=== PATIENT | male | born 1990 | race Caucasian/White ===

== ENCOUNTER 2017-07-19 17:09 | Emergency (ER) | payer SELFPAY ==
[2017-07-19 17:13] VITALS: TEMP 97.6; O2SAT 98
--- NOTE | 2017-07-19 17:49 | ED PDOC ---
HPI: Psych/Substance Abuse Time Seen by Provider: 07/19/17 17:33 Chief Complaint (Nursing): Substance Abuse Chief Complaint (Provider): alcohol use History Per: Patient History/Exam Limitations: no limitations Onset/Duration Of Symptoms: Mins Suicide/Self Injury Attempted (Context): None Modifying Factor(s): Alcohol Associated Symptoms: denies: Suicidal Thoughts, Suicidal Plan Additional Complaint(s): 27yo male, brought to ER by EMS for evaluation as patient was noted to have jumped [place] the [place]. Patient reports he "went for a swim" because his friends bet him $200 to make the jump. He denies any head injury, abdominal pain , nausea or vomiting. He also denies any suicidal ideation or plan. Of note, patient admits to drinking alcohol today but denies any drug usage. No other complaints. Past Medical History Reviewed: Historical Data, Nursing Documentation, Vital Signs Vital Signs: Last Vital Signs Temp 97.6 F 07/19/17 17:10 Pulse 98 H 07/19/17 17:10 Resp 22 07/19/17 17:10 BP 159/96 H 07/19/17 17:10 Pulse Ox 98 07/19/17 17:10 - Medical History PMH: No Chronic Diseases - Surgical History Surgical History: No Surg Hx - Family History Family History: States: No Known Family Hx - Allergies Allergies/Adverse Reactions: Allergies Allergy/AdvReac Type Severity Reaction Status Date / Time No Known Allergies Allergy Verified 07/19/17 17:13 Review of Systems ROS Statement: Except As Marked, All Systems Reviewed And Found Negative Constitutional: Negative for: Fever, Chills Cardiovascular: Negative for: Chest Pain Respiratory: Negative for: Shortness of Breath Gastrointestinal: Negative for: Abdominal Pain Neurological: Negative for: Weakness, Numbness Physical Exam - Reviewed Nursing Documentation Reviewed: Yes Vital Signs Reviewed: Yes - Physical Exam Appears: Positive for: Non-toxic, No Acute Distress Head Exam: Positive for: ATRAUMATIC, NORMAL INSPECTION, NORMOCEPHALIC Skin: Positive for: Normal Color Eye Exam: Positive for: Normal appearance ENT: Positive for: Normal ENT Inspection. Negative for: Pharyngeal Erythema, Tonsillar Exudate, Tonsillar Swelling Neck: Positive for: Normal, Supple Cardiovascular/Chest: Positive for: Regular Rate, Rhythm Respiratory: Positive for: Normal Breath Sounds. Negative for: Wheezing, Respiratory Distress Pulses-Dorsalis Pedis (L): 2+ Pulses-Dorsalis Pedis (R): 2+ Gastrointestinal/Abdominal: Positive for: Normal Exam, Soft. Negative for: Tenderness Back: Positive for: Normal Inspection Extremity: Positive for: Normal ROM. Negative for: Pedal Edema, Deformity Neurologic/Psych: Positive for: Alert, Oriented. Negative for: Motor/Sensory Deficits - Laboratory Results Result Diagrams: 07/19/17 17:50 Interpretation Of Abn Labs: 121 etoh - ECG O2 Sat by Pulse Oximetry: 98 (RA) Pulse Ox Interpretation: Normal - Progress ED Course And Treament: 1848: Stable. AAOx3. Pain free. Crisis saw pt. Does not meet criteria for admit. Fu with pcp. Medical Decision Making Medical Decision Making: Impression: Alcohol intoxication Plan: -- Labs -- Crisis evaluation -- 1:1 Evaluation Scribe Attestation: Documented by Armida Gonzalez acting as a scribe for Allen Stout MD. Provider Attestation: All medical record entries made by the Scribe were at my direction and personally dictated by me. I have reviewed the chart and agree that the record accurately reflects my personal performance of the history, physical exam, medical decision making, and the department course for this patient. I have also personally directed, reviewed, and agree with the discharge instructions and disposition. Disposition - Clinical Impression Clinical Impression: Alcohol abuse - Patient ED Disposition Is Patient to be Admitted: No Counseled Patient/Family Regarding: Studies Performed, Diagnosis, Need For Followup - Disposition Referrals: [facility] [Outside] - 07/21/17 Disposition: Routine/Home Disposition Time: 18:49 Condition: STABLE Additional Instructions: Return if not better in 3 days. Instructions: Effects of Alcohol on Your Health Forms: [facility] (Hungarian)
[2017-07-19 18:19] LABS: BLOOD UREA NITROGEN 17 mg/dl (9-20); GFR AFRICAN-AMERICAN > 60; GFR NON-AFRICAN AMERICAN > 60
[2017-07-19 18:20] LABS: ALB/GLOB RATIO 1.5 (1.0-2.1); ALT/SGPT 37 U/L (21-72); AST/SGOT 31 U/L (17-59); CALCIUM 9.9 mg/dL (8.4-10.2)
[2017-07-19 19:26] VITALS: BP 148/88; PULSE 90; RESP 18
== END 2017-07-19 19:09 | disposition home or self-care (01) ==
LOC: H.ER 17:09
DX: F10.129 Alcohol abuse with intoxication, unspecified (principal); Z00.8 Encounter for other general examination
CPT/HCPCS: 80053; 99282; G0480